=== PATIENT | female | born 1960 | race Caucasian/White ===

== ENCOUNTER → 2016-08-10 | Outpatient (CLI) | payer BC ==
[~2016-08-10] MED LIST: ALPR.5 PO; ESTR42.5V VAGINAL; TEST1GEL10 TOPICAL; ULTR50TA5 PO; ZANT150T2 PO
--- NOTE | 2016-08-11 11:50 | EKG ---
Date Performed: 08/10/2016 Time Performed: 12:25:08 PTAGE: 55 years EKG: Sinus rhythm Low QRS voltages in precordial leads Borderline ECG PREVIOUS TRACING : 04/08/2011 01.19 DOCTOR: [place] Interpretating Date/Time 08/11/2016 11:45:05
== END ==
LOC: PHPRE 11:46
PROVIDERS: ATTEND Obstetrics & Gynecology
DX: Z01.810 Encounter for preprocedural cardiovascular examination (principal); N95.0 Postmenopausal bleeding; N84.0 Polyp of corpus uteri; R94.31 Abnormal electrocardiogram [ECG] [EKG]
CPT/HCPCS: 93005

== ENCOUNTER → 2016-08-12 | Day surgery (SDC) | payer BC ==
[~2016-08-12] VITALS: Ht 165.1 cm; Wt 72.3 kg
[~2016-08-12] MED LIST changes: +FAMOTIDINE 20 MG/2 ML VIAL ONE; +LACTATED RINGER'S 1000 ML INJ 1,000 ML ONE; +MIDAZOLAM HCL 2 MG/2 ML VIAL ONE; +PROPOFOL 200 MG/20 ML AMP IV ONE; +fentaNYL CITRATE 250 MCG/5 ML AMP ONE; +traMADol HCL 50 MG TAB ONE
[2016-08-12 06:45] VITALS: BP 118/81; PULSE 59; RESP 20; TEMP 97.8; O2SAT 98
[2016-08-12 08:39] VITALS: PULSE 70
[2016-08-12 09:00] VITALS: PULSE 58; TEMP 97.5
[2016-08-12 10:05] VITALS: BP 116/78; PULSE 60; RESP 14; O2SAT 97
--- NOTE | 2016-09-23 11:39 | PD.OP ---
. Operative Report Date of Surgery: Jul 15, 2016 Preoperative Diagnosis: (1) Postmenopausal bleeding (2) Abnormal findings on diagnostic imaging of other specified body structures Postoperative Diagnosis: (1) Postmenopausal bleeding (2) Abnormal findings on diagnostic imaging of other specified body structures (3) Submucous uterine fibroid Procedure: hysteroscopy with dilation and curettage Anesthesia: gen by LMA Surgeon: Leena Rocha Cement Mixer Driver(s): n/a Operation and Findings: Indications: This patient was found to have endometrial thickening on imaging done for postmenopausal bleeding. She refused office biopsy due to a stenotic cervix and anticipated pain. Findings: Patient was found on hysteroscopic view to have an endometrial polyp vs fibroid, confirmed to be not removed by repeat hysteroscopy post dilation and curettage. Procedure: Patient was brought to the OR and laid supine on the table. After inducing general anesthesia she was positioned in low stirrups in dorso- lithotomy position. An open-sided speculum was placed in the vagina after Betadine prep and time out. The anterior lip of the cervix was grasped with a single tooth tenaculum, and the cervix was dilated to accept a standard rigid hysteroscope. After viewing and taking pictures, the polyp was extracted with polyps forceps. The endometrium was the thoroughly sampled using a medium sharp curet. Moderate tissue returned. A second hysteroscopic view confirmed that all the findings described above were included in the specimen. The procedure being complete, the instruments were removed, the patient was replaced supine and she was awakened. She was transferred to the PACU breathing on her own in stable condition. Sponge, needle and instrument counts were correct. Leena Rocha MD September 23, 2016 11:39
== END | disposition home or self-care (01) ==
LOC: PHSDC 06:09
PROVIDERS: ATTEND Obstetrics & Gynecology
DX: N95.0 Postmenopausal bleeding (principal); D25.0 Submucous leiomyoma of uterus
CPT/HCPCS: 00952; 58558; 88305; J2250; J3010; J7120